=== PATIENT | female | born 1965 | race Caucasian/White ===

== ENCOUNTER 2019-10-02 08:20 | Emergency (ER) | payer BC ==
[~2019-10-02] VITALS: Ht 162.6 cm; Wt 67.1 kg
[~2019-10-02 08:20] MED LIST: BENADRYL25 MG PO; GLUCOSAMINE-CH1 EA36; IBUPROFEN 200200 M1 PO; NEURONTIN 300300 M1 PO; TYLENOL EX-STR500 M2 PO
[2019-10-02 09:23] LABS: ABSOLUTE BASOPHILS 0.1 thou/uL (0.0-0.2); ABSOLUTE EOSINOPHILS 0.2 thou/uL (0.0-0.7); ABSOLUTE LYMPHOCYTES 1.7 thou/uL (0.8-5.3); ABSOLUTE MONOCYTES 0.4 thou/uL (0.0-1.2); ABSOLUTE NEUTROPHILS 3.6 thou/uL (1.6-8.1); BASOPHILS 1.5 %; HEMATOCRIT 41.8 % (37.0-47.0); HEMOGLOBIN 14.5 gm/dL (12.0-15.0); LYMPHOCYTES 28.9 %; MCH 31.8 pg (26.0-34.0); MCHC 34.7 g/dL (28.0-37.0); MCV 91.6 fL (80.0-100.0); MONOCYTES 6.6 %; MPV 8.4 fl. (7.2-11.1); NUCLEATED RBCS 0 /100WBC; PLATELET COUNT* 277 thou/uL (150-400); RBC 4.56 mil/uL (4.20-5.00); RDW-CV 12.9 % (10.5-14.5)
[2019-10-02 09:24] LABS: URINE BILIRUBIN NEGATIVE (Negative); URINE BLOOD NEGATIVE (Negative); URINE CLARITY CLEAR; URINE COLOR YELLOW; URINE GLUCOSE-RANDOM NEGATIVE (Negative); URINE KETONES NEGATIVE (Negative); URINE LEUKOCYTES-REFLEX NEGATIVE (Negative); URINE NITRITE-REFLEX NEGATIVE (Negative); URINE PROTEIN NEGATIVE (Negative); URINE UROBILINOGEN 0.2 E.U./dl (0.2-1.0)
[2019-10-02 09:32] LABS: CALCIUM 8.9 mg/dL (8.5-10.1); CREATININE 0.9 mg/dL (0.6-1.3); POTASSIUM 3.9 mmol/L (3.5-5.1)
[2019-10-02 09:37] LABS: ALBUMIN 4.3 g/dL (3.4-5.0); TOTAL BILIRUBIN 1.1 mg/dL (<0.1-1.0); TOTAL PROTEIN 8.2 g/dL (6.4-8.2)
[2019-10-02] MEDS ORDERED: DIAZEPAM 2MG TAB2 MG PO (14:26)
[2019-10-02 14:45] VITALS: BP 143/77
--- NOTE | 2019-10-02 16:25 | EKG ---
[place] [address] ELECTROCARDIOGRAM REPORT Name: FRIDA PAULINO Room: [facility]#: [id number] Admission: 10/02/19 Attend Phys: Discharge: 10/02/19 Date of : 67 Date of Service: 10/02/19829 Report #: [id number] THIS REPORT FOR: //name// [facility] ED Test Date: 2019-10-02 Test Time: 08:30:31 Pat Name: FRIDA PAULINO Department: Room: Gender: [employer]: [facility] : 1965 Requested By: Leandra Modi Order Number: [id number] MD: Smooth Leroy Measurements Intervals [place] Rate: 64 P: 58 NE: 131 QRS: 37 QRSD: 83 T: 36 QT: 409 QTc: 422 Interpretive Statements Sinus rhythm No previous ECG available for comparison Electronically Signed On 10-02-2019 16:23:51 CDT by Smooth Leroy [email or web address] <ELECTRONICALLY SIGNED> By: Smooth Leroy MD, [facility] 10/02/19 1623 9 9 Smooth Leroy MD, FACC /EPI
== END 2019-10-02 14:46 | disposition home or self-care (01) ==
LOC: M.ERS 08:20
PROVIDERS: Personal Emergency Response Attendant
DX: R42 Dizziness and giddiness (principal)